=== PATIENT | male | born 1995 | race African-American/Black ===

== ENCOUNTER 2022-01-10 11:23 | Emergency (ER) | payer BC ==
[~2022-01-10] VITALS: Ht 180.3 cm; Wt 70.0 kg
[2022-01-10 11:36] VITALS: BP 137/85
[2022-01-10] MEDS ORDERED: ACETAMINOPHEN WITH CODEINE 300/30MG TABLET PO ONE (12:45)
[2022-01-10] MEDS ORDERED: IBUPROFEN 800MG TABLET PO ONE (12:45)
[2022-01-10] MEDS ORDERED: IBUP-2028 PO (13:09)
== END 2022-01-10 13:51 | disposition home or self-care (01) ==
LOC: ER 11:23
DX: M54.59 Other low back pain (principal)
CPT/HCPCS: 99283